=== PATIENT | male | born 1960 | race Caucasian/White ===

== ENCOUNTER 2018-03-21 07:19 | Emergency (ER) | payer OTHER ==
[~2018-03-21] VITALS: Ht 167.6 cm; Wt 68.0 kg
[2018-03-21] MEDS ORDERED: IPRATRPIUM/ALBUTEROL 0.5/2.5MG 3 ML NEBU. ONE (07:30)
[2018-03-21] MEDS ORDERED: IPRATRPIUM/ALBUTEROL 0.5/2.5MG 3 ML NEBU. NEB ONE (07:45)
[2018-03-21] MEDS ORDERED: ASPIRIN 81 MG TAB.CHEW PO ONE (07:45)
--- NOTE | 2018-03-21 07:55 | PHYS DOC ---
Past History Past Medical History: COPD Past Surgical History: Other Smoking: Cigarettes, Greater than 1 pack/day Alcohol Use: None Drug Use: None Adult General Chief Complaint Chief Complaint: CHEST PAIN HPI HPI Patient is a [57] year old [male] who presents with [chest pain.] Patient states he woke him up at 2 AM because of pressure feeling in substernal area with radiation to his back and rated his pain 7/10. Patient complaining of shortness of breath without nausea, dizziness, palpitation, diaphoresis, paresthesia. The patient states the pain getting worse with lateral position and improves with supine position. Patient states he was able to fall asleep but this morning he didn't feel good and still had chest pain and rated his pain 2/10. Patient has chronic nonproductive cough and denies recent fever, URI symptoms, nausea and vomiting, urinary symptom. Patient states he had the same pain about 2 months ago and had complete negative cardiac workup including stress test, echo, chest x-ray and labs. Patient denies any medical problem except for COPD and states he smokes 1-1.5 pack a day for almost 50 years. Patient does not have family history of coronary artery disease. Review of Systems Review of Systems Constitutional: Denies fever or chills [] Eyes: Denies change in visual acuity, redness, or eye pain [] HENT: Denies nasal congestion or sore throat [] Respiratory: Reports chronic cough and shortness of breath [] Cardiovascular: No additional information not addressed in HPI [] GI: Denies abdominal pain, nausea, vomiting, bloody stools or diarrhea [] : Denies dysuria or hematuria [] Musculoskeletal: Denies back pain or joint pain [] Integument: Denies rash or skin lesions [] Neurologic: Denies headache, focal weakness or sensory changes [] Endocrine: Denies polyuria or polydipsia [] All other systems were reviewed and found to be within normal limits, except as documented in this note. Current Medications Current Medications Current Medications Medications (Trade) Dose Ordered Sig/Lucita Start Time Stop Time Status Last Admin Dose Admin Albuterol/ Ipratropium (Duoneb) 3 ml 1X ONCE 03/21/18 07:45 03/21/18 07:46 DC Aspirin (Children'S Aspirin) 324 mg 1X ONCE 03/21/18 07:45 03/21/18 07:46 DC 03/21/18 07:48 324 MG Methylprednisolone Sodium Succinate (SOLU-Medrol 125MG VIAL) 125 mg 1X ONCE 03/21/18 08:00 03/21/18 08:01 03/21/18 07:48 125 MG Allergies Allergies Allergies Coded Allergies Type Severity Reaction Last Updated Verified ranitidine Allergy Unknown Hives 03/21/18 Yes Physical Exam Physical Exam Constitutional: Well developed, well nourished, mild distress, non-toxic appearance. [] HENT: Normocephalic, atraumatic, bilateral external ears normal, oropharynx moist, no oral exudates, nose normal. [] Eyes: PERRLA, EOMI, conjunctiva normal, no discharge. [] Neck: Normal range of motion, no tenderness, supple, no stridor. [] Cardiovascular:Heart rate regular rhythm, no murmur [] Lungs & Thorax: Decrease of air movement in bilateral lung, mild wheezing, Abdomen: Bowel sounds normal, soft, no tenderness, no masses, no pulsatile masses. [] Skin: Warm, dry, no erythema, no rash. [] Back: No tenderness, no CVA tenderness. [] Extremities: No tenderness, no cyanosis, no clubbing, ROM intact, no edema. [] Neurologic: Alert and oriented X 3, normal motor function, normal sensory function, no focal deficits noted. [] Psychologic: Affect normal, judgement normal, mood normal. [] Current Patient Data Vital Signs Vital Signs Date Time Temp Pulse Resp B/P (MAP) Pulse Ox O2 Delivery O2 Flow Rate FiO2 03/21/18 07:34 96 Room Air 03/21/18 07:30 98.4 87 17 EKG EKG EKG interpreted by me. EKG at 0 722 showed normal sinus rhythm at rate of 92, left atrial abnormality, poor R wave progress in anteroseptal leads, no acute ST and T-wave abnormalities[] Radiology/Procedures Radiology/Procedures [][address] [place] [id number] IMAGING REPORT Signed PATIENT: SHERRY COVARRUBIAS ACCOUNT: [id number] : 1960 LOCATION: ER AGE: 57 SEX: M EXAM STATUS: REG ER ORD. PHYSICIAN: KIERSTEN WALLACE MD REASON: chest pain PROCEDURE: PORTABLE CHEST 1V PORTABLE CHEST 1V History: LEFT SIDE CHEST PAIN ONSET THIS MORNING Comparison: None. Findings: Single view of the chest is submitted. There is no infiltrate, pneumothorax, or effusion. The pericardial cardiac silhouette is within normal limits in size. Impression: 1. There is no radiographic evidence of acute cardiopulmonary disease. Electronically signed by: Sabi Mcghee MD (03/21/2018 8:03 AM) [id number] DICTATED AND SIGNED BY: SABI MCGHEE MD DATE: 03/21/18 0759 CC: KIERSTEN WALLACE MD; TANK FLORES DO ~ Course & Med Decision Making Course & Med Decision Making Pertinent Labs and Imaging studies reviewed. (See chart for details) Evaluation of patient in ER showed 57-year-old heavy smoker male patient with complaining of chest pain and shortness of breath. Patient is a bowel movement and O2 sat of 92% room air that improved with oxygen, nebulizer treatment and Solu-Medrol. Patient had unremarkable labs including cardiac enzyme, lipase, d- dimer. White count was 15,000 that was related to stress of pain. Patient had negative cardiac evaluation 2 months ago and then went to seen at Hospital for more evaluation. Patient instructed to follow-up with his primary care physician for referral to student support services director and chiropractor assistant and quit smoking. Patient instructed to return to ER if having chest pain. [] Dragon Disclaimer Dragon Disclaimer This electronic medical record was generated, in whole or in part, using a voice recognition dictation system. Departure Departure: Impression: Primary Impression: Acute chest pain Additional Impressions: Dyspnea Leukocytosis Tobacco abuse Tobacco abuse counseling Disposition: HOME, SELF-CARE (At 0857) Condition: IMPROVED Referrals: TANK FLORES DO (PCP) Patient Instructions: Chest Pain (Nonspecific), Shortness of Breath, Smoking Cessation, Smoking Cessation, Tips For Success Additional Instructions: Follow-up with your primary care physician in one or 2 days for more cardiac and pulmonary evaluation Quit smoking Return to ER if not getting better Scripts Methylprednisolone (MEDROL) 4 Mg Tab.ds.pk 1 PKG PO UD, #1 PKG Prov: KIERSTEN WALLACE MD 03/21/18 Ipratropium/Albuterol Sulfate (COMBIVENT RESPIMAT INHAL) 4 Gm Aer.w.adap 2 PUFF INH QID PRN for SHORTNESS OF BREATH, #1 INHALER Prov: KIERSTEN WALLACE MD 03/21/18 Problem Qualifiers KIERSTEN WALLACE MD Mar 21, 2018 07:55
[2018-03-21] MEDS ORDERED: methylPREDNISolone SOD SUCC PF 125 MG/2 ML VIAL. IV ONE (08:00)
[2018-03-21 08:04] LABS: BASO # 0.1 x10^3/uL (0.0-0.2); BASO % 1 % (0-3); EOS # 0.1 x10^3/uL (0.0-0.7); EOS % 1 % (0-3); HEMATOCRIT 44.1 % (39.0-53.0); HEMOGLOBIN 15.2 g/dL (13.0-17.5); LYMPH # 2.7 x10^3/uL (1.0-4.8); LYMPH % 18 % (24-48); MEAN CORPUSCULAR HEMOGLOBIN 34 pg (25-35); MEAN CORPUSCULAR HGB CONC 34 g/dL (31-37); MEAN CORPUSCULAR VOLUME 98 fL (79-100); MONO # 1.3 x10^3/uL (0.0-1.1); MONO % 8 % (0-9); NEUT # 11.1 x10^3uL (1.8-7.7); NEUT % 73 % (31-73); PLATELET COUNT 309 x10^3/uL (140-400); RED BLOOD COUNT 4.51 x10^6/uL (4.30-5.70); RED CELL DISTRIBUTION WIDTH 14.1 % (11.5-14.5); WHITE BLOOD COUNT 15.3 x10^3/uL (4.0-11.0)
--- NOTE | 2018-03-21 08:07 | RAD ---
PORTABLE CHEST 1V History: LEFT SIDE CHEST PAIN ONSET THIS MORNING Comparison: None. Findings: Single view of the chest is submitted. There is no infiltrate, pneumothorax, or effusion. The pericardial cardiac silhouette is within normal limits in size. Impression: 1. There is no radiographic evidence of acute cardiopulmonary disease. Electronically signed by: Timbo Mcghee MD (03/21/2018 8:03 AM) [id number]
[2018-03-21 08:28] LABS: ALBUMIN 3.9 g/dL (3.4-5.0); ALBUMIN/GLOBULIN RATIO 1.2 (1.0-1.7); ALK PHOS 91 U/L (46-116); ALT (SGPT) 30 U/L (16-63); ANION GAP 11 (6-14); AST (SGOT) 19 U/L (15-37); BLOOD UREA NITROGEN 8 mg/dL (8-26); BUN/CREATININE RATIO 7 (6-20); CALCIUM 8.9 mg/dL (8.5-10.1); CARBON DIOXIDE 26 mmol/L (21-32); CHLORIDE 102 mmol/L (98-107); CREATININE 1.1 mg/dL (0.7-1.3); GFR 68.5; GLUCOSE 156 mg/dL (70-99); LIPASE 69 U/L (73-393); MAGNESIUM 1.8 mg/dL (1.8-2.4); POTASSIUM 3.9 mmol/L (3.5-5.1); SODIUM 139 mmol/L (136-145); TOTAL BILIRUBIN 0.5 mg/dL (0.2-1.0); TOTAL PROTEIN 7.2 g/dL (6.4-8.2)
[2018-03-21 08:57] VITALS: BP 114/67
[2018-03-21] MEDS ORDERED: METH4TAB2 PO ×3 (09:00→09:06)
[2018-03-21] MEDS ORDERED: IPRA4AER INH ×3 (09:00→09:06)
[2018-03-21 09:42] LABS: % BANDS 2 % (0-9); % LYMPHS 24 % (24-48); % MONOS 3 % (0-10); % SEGS 71 % (35-66)
[2018-03-21 09:43] LABS: PLT ESTIMATE ADEQUATE (ADEQUATE)
--- NOTE | 2018-03-21 10:59 | EKG ---
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
== END 2018-03-21 09:08 | disposition home or self-care (01) ==
LOC: ER 07:19
DX: R07.89 Other chest pain (principal); D72.829 Elevated white blood cell count, unspecified; F17.210 Nicotine dependence, cigarettes, uncomplicated; J44.9 Chronic obstructive pulmonary disease, unspecified; Z71.6 Tobacco abuse counseling; Z88.8 Allergy status to other drugs, medicaments and biological substances
CPT/HCPCS: 36415; 71045; 80053; 82553; 83690; 83735; 83880; 84484; 85007; 85025; 85379; 85610; 93005; 94640; 96374; 99285; J2930; J7620